=== PATIENT | female | born 1990 | race Two or more races ===

== ENCOUNTER 2020-04-29 12:39 | Emergency (ER) | payer OTHER ==
[~2020-04-29] VITALS: Ht 157.5 cm; Wt 73.5 kg
[2020-04-29] MEDS ORDERED: CONCEPT DHA CA1 EACH PO (13:28)
== END 2020-04-29 16:39 ==
LOC: ER 12:39
DX: N64.4 Mastodynia (principal)

== ENCOUNTER 2020-07-06 19:10 | Emergency (ER) | payer OTHER ==
[~2020-07-06] VITALS: Ht 157.5 cm; Wt 70.8 kg
[~2020-07-06 19:10] MED LIST: CONCEPT DHA CA1 EACH PO
[2020-07-06] MEDS ORDERED: PANADOL EXTRA500 MG (19:24)
[2020-07-06] MEDS ORDERED: PRENATALES (19:25)
[2020-07-07] MEDS ORDERED: CEPHALEXIN500 MG PO (01:15)
== END 2020-07-07 01:31 | disposition home or self-care (01) ==
LOC: ER
DX: O26.892 Other specified pregnancy related conditions, second trimester (principal); R10.84 Generalized abdominal pain; Z34.02 Encounter for supervision of normal first pregnancy, second trimester

== ENCOUNTER 2020-09-11 17:38 | Emergency (ER) | payer OTHER ==
[~2020-09-11] VITALS: Ht 157.5 cm; Wt 70.3 kg
[~2020-09-11 17:38] MED LIST changes: +CEPHALEXIN500 MG PO; +PANADOL EXTRA500 MG; +PRENATALES
[2020-09-11] MEDS ORDERED: AZITHROMYCIN250 MG (17:47)
[2020-09-11] MEDS ORDERED: AZITHROMYCIN1 GM (17:47)
== END 2020-09-11 22:43 | disposition home or self-care (01) ==
LOC: ER 17:38
DX: O26.892 Other specified pregnancy related conditions, second trimester (principal); O23.32 Infections of other parts of urinary tract in pregnancy, second trimester; A49.3 Mycoplasma infection, unspecified site; R19.7 Diarrhea, unspecified; K52.89 Other specified noninfective gastroenteritis and colitis; E86.0 Dehydration; R11.2 Nausea with vomiting, unspecified; Z3A.28 28 weeks gestation of pregnancy

== ENCOUNTER 2020-10-04 12:50 | Inpatient (IN) | payer OTHER ==
[~2020-10-04] VITALS: Ht 157.5 cm; Wt 76.2 kg
[~2020-10-04 12:50] MED LIST changes: +AZITHROMYCIN1 GM; +AZITHROMYCIN250 MG
== END 2020-10-07 13:10 | disposition home or self-care (01) | DRG 788 ==
LOC: LDR 12:50 → SURG-SUITE 10-05 17:28
PROVIDERS: ADMIT Obstetrics & Gynecology; ATTEND Obstetrics & Gynecology
PROC: 4A1HXFZ Monitoring of Products of Conception, Cardiac Rhythm, External Approach (ICD-10-PCS; 2020-10-04)
PROC: BY4FZZZ Ultrasonography of Third Trimester, Single Fetus (ICD-10-PCS; 2020-10-04)
PROC: 10D00Z1 Extraction of Products of Conception, Low, Open Approach (ICD-10-PCS; principal; 2020-10-04 22:15)
DX: O14.14 Severe pre-eclampsia complicating childbirth (principal); O76 Abnormality in fetal heart rate and rhythm complicating labor and delivery; Z3A.29 29 weeks gestation of pregnancy; Z37.0 Single live birth; Z20.822 Contact with and (suspected) exposure to COVID-19